=== PATIENT | male | born 1945 | race Caucasian/White ===

== ENCOUNTER → 2024-04-11 10:19 | Outpatient (REF) | payer MEDICARE, OTHER, SELFPAY | LOC: HWRAD 10:19 | PROVIDERS: ATTENDING PHYSICIAN Radiology Diagnostic Radiology; FAMILY PHYSICIAN Family Medicine; REFERRING PHYSICIAN Family Medicine Sports Medicine | DX: Z13.5 Encounter for screening for eye and ear disorders (principal) | CPT/HCPCS: 70030 ==

== ENCOUNTER → 2024-04-20 16:13 | Outpatient (REF) | payer MEDICARE, OTHER, SELFPAY | LOC: PAVMRI 16:13 | PROVIDERS: ATTENDING PHYSICIAN Family Medicine Sports Medicine; FAMILY PHYSICIAN Family Medicine | DX: G89.29 Other chronic pain (principal); M25.552 Pain in left hip; M54.16 Radiculopathy, lumbar region | CPT/HCPCS: 72148; 73721 ==

== ENCOUNTER → 2025-01-06 17:50 | Outpatient (REF) | payer MEDICARE, OTHER, SELFPAY | LOC: MRI 3T 17:50 | PROVIDERS: ATTENDING PHYSICIAN Nurse Practitioner Family; FAMILY PHYSICIAN Family Medicine | DX: M48.062 Spinal stenosis, lumbar region with neurogenic claudication (principal) | CPT/HCPCS: 72158; A9575 ==

== ENCOUNTER → 2025-02-01 14:43 | Outpatient (REF) | payer MEDICARE, OTHER, SELFPAY | LOC: HWRCS 14:43 | PROVIDERS: ATTENDING PHYSICIAN Internal Medicine Cardiovascular Disease; FAMILY PHYSICIAN Family Medicine | DX: R60.0 Localized edema (principal); Z01.818 Encounter for other preprocedural examination; I10 Essential (primary) hypertension | CPT/HCPCS: 93306 ==

== ENCOUNTER 2025-02-22 06:06 | Day surgery (SDC) | payer MEDICARE, OTHER, SELFPAY ==
[2025-01-31 14:09] LABS: Hematocrit 35.7 % (39.0-52.0); Hemoglobin 12.3 g/dL (13.0-18.0); Mean Corp Hgb Conc. 34.5 g/dL (33.0-37.0); Mean Corpuscular Hgb 35.4 pg (27.0-31.0); Mean Corpuscular Volume 102.9 fL (80.0-94.0); Mean Platelet Volume 9.5 fL (7.4-10.4); Platelet Count 184 10^3/uL (130-400); Red Blood Cell Count 3.47 10^6/uL (4.70-6.10); Red Cell Dist. Width 12.8 % (11.5-14.5); White Blood Cell Count 6.2 10^3/uL (4.8-10.8)
[2025-01-31 14:16] VITALS: BMI 32.7
[2025-01-31 14:30] LABS: ALT (SGPT) 27 U/L (0-50); AST (SGOT) 23 U/L (17-59); Albumin 4.4 g/dl (3.5-5.0); Alkaline Phosphatase 55 U/L (38-126); Blood Urea Nitrogen 21 mg/dl (9-20); Calcium 9.8 mg/dl (8.4-10.2); Carbon Dioxide 26 mmol/L (22-30); Chloride 102 mmol/L (98-107); Estimated Creatinine Clearance 63 ml/min; Glucose 141 mg/dl (70-99); Potassium 5.5 mmol/L (3.5-5.1); Sodium 139 mmol/L (135-145); Total Bilirubin 0.7 mg/dl (0.2-1.3); Total Protein 7.1 g/dl (6.3-8.2); eGFR > 60.00
[2025-01-31 14:40] LABS: NT-proBNP 195 pg/ml
[2025-01-31 15:00] LABS: TSH Reflex To Free T4 2.76 uIU/ml (0.47-4.68)
[2025-01-31 15:03] LABS: Glycohemoglobin (HgbA1c) 6.6 % (4.0-5.6)
[2025-01-31 16:47] LABS: Iron 145 ug/dl (49-181)
[2025-01-31 16:56] LABS: Percent Saturation 49 % (20-50); Total Iron Binding Capacity 292 ug/dl (261-462)
[2025-01-31 17:55] LABS: Folate > 20.0 ng/ml (2.76-20); Vitamin B12 833 pg/ml (239-931)
[2025-01-31 18:26] VITALS: BMI 32.7
[2025-02-03 10:59] LABS: Potassium 4.8 mmol/L (3.5-5.1)
[2025-02-03 13:14] VITALS: BMI 32.3
[2025-02-03 15:00] VITALS: BMI 32.3
--- NOTE | 2025-02-13 16:09 | VNURNOTE ---
Patient is scheduled for an elective L THR on 02/22 - he is a same day patient with Dr Preston. Spoke with patient prior to surgery. Introduced role of [facility] Liaison. Patient reports that he lives with his in a MULTI story home.
There is 1 step to enter and a flight of steps to the second floor.
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 He has a raised toilet seat, grabber, glucometer, grab bars, cane and rolling walker.
PCP is Dr Nadeen Teixeira.
Discussed [facility] joint protocol and post surgical plans.
Reviewed that he will have VN services initially and will then start outpatient PT.
Patient selects [facility] for his home care needs and will go to [facility] for outpatient PT. Scheduled for 02/27.
Patient is in agreement with plan and states that his will be home with him. Advised to bring RW with him day of surgery. Referral placed in [facility].
Plan: [facility] per [facility] joint protocol on 02/22 then outpt PT on 02/27
[2025-02-22] VITALS (10 sets, daily range): BP systolic 123–160; BP diastolic 61–85
--- NOTE | 2025-02-22 06:43 | W.DS.TRANS ---
DC Summary - [employer]
-
Discharge Instructions:
Discharge Diagnosis/Procedures L NOE 02/22/25
Diet Diabetic, Carb Controlled
Activity With Walker
Driving Restrictions No driving
Bathing Restrictions OK to Shower
Other Services PT
Instructions:
Stand-Alone Forms: SDS Total Hip and Knee D/C
Changes to Home Medications: Yes
Discharge Medications:
DC Medications w/original date entered in rollApp
Bifidobacterium longum 10 million cell capsule (Align (B.longum)) 10,000,000 cell PO DAILY 01/30/25
alfuzosin 10 mg tablet,extended release 24 hr 10 mg PO HS 01/30/25
amlodipine 10 mg tablet 10 mg PO DAILY 01/30/25
ascorbic acid (vitamin C) 500 mg tablet (Vitamin C) 500 mg PO DAILY 01/30/25
cholecalciferol (vitamin D3) 25 mcg (1,000 unit) chewable tablet (Vitamin D3) 25 mcg PO DAILY 01/30/25
cyanocobalamin (vitamin B-12) 1,000 mcg tablet (Vitamin B-12) 1,000 mcg PO DAILY 01/30/25
duloxetine 40 mg capsule,delayed release 40 mg PO DAILY 01/30/25
glipizide 5 mg tablet 5 mg PO BID 01/30/25
krill 500 mg-omega-3 150 mg-dha 45 mg-epa 75 [id number]-[id number] capsule (krill oil) 1 cap PO DAILY 01/30/25
losartan 50 mg tablet 75 mg PO DAILY 01/30/25
metformin 500 mg tablet 1,000 mg PO DAILY 01/30/25
metformin 500 mg tablet 500 mg PO QPM 01/30/25
metoprolol succinate 50 mg tablet,extended release 24 hr 25 mg PO QPM 01/30/25
metoprolol succinate 50 mg tablet,extended release 24 hr 50 mg PO DAILY 01/30/25
mometasone 50 mcg/actuation nasal spray (Nasonex 24hr Allergy) 2 spray intranasal DAILY PRN Rhinitis, Congestion 01/30/25
multivitamin 1 tab PO DAILY 01/30/25
pantoprazole 40 mg tablet,delayed release 40 mg PO DAILY 01/30/25
simvastatin 10 mg tablet 10 mg PO HS 01/30/25
tadalafil 10 mg tablet 10 - 20 mg PO DAILY PRN ED 01/30/25
tolterodine 4 mg capsule,extended release 24 hr 4 mg PO DAILY@1200 01/30/25
zinc acetate 50 mg (zinc) capsule 50 mg PO DAILY 01/30/25
baclofen 10 mg tablet 10 mg PO BID PRN muscle spasms #15 tabs 01/31/25
cefadroxil 500 mg capsule 500 mg PO DAILY #7 caps 01/31/25
furosemide 20 mg tablet 20 mg PO DAILY 01/31/25
mupirocin 2 % topical ointment 1 applic intranasal BID #1 tube 01/31/25
ondansetron HCl 4 mg tablet 4 mg PO Q6H PRN nausea and vomiting #30 tabs 01/31/25
oxycodone 5 mg tablet 5 - 10 mg (1 - 2 x 5 mg) PO Q6H PRN moderate-severe pain #30 tabs 01/31/25
psyllium 1 packet PO DAILY 01/31/25
acetaminophen 500 mg tablet 1,000 mg (2 x 500 mg) PO QID #0 tabs 02/22/25
apixaban 5 mg tablet (Eliquis) 2.5 mg (1/2 x 5 mg) PO BID Blood clot prevention/tx/afib #60 tabs 02/22/25
docusate sodium 100 mg capsule (Colace) 100 mg PO BID stool softner #1 cap 02/22/25
magnesium hydroxide 400 mg/5 mL oral suspension (Milk of Magnesia) 30 ml PO HS PRN Constipation #1 mL 02/22/25
sennosides 8.6 mg tablet (Senokot) 17.2 mg (2 x 8.6 mg) PO BID laxative #2 tabs 02/22/25
Home Medication Changes
mupirocin 2 % topical ointment 1 applic intranasal BID #1 tube 01/31/25
ondansetron HCl 4 mg tablet 4 mg PO Q6H PRN nausea and vomiting #30 tabs 01/31/25
oxycodone 5 mg tablet 5 - 10 mg (1 - 2 x 5 mg) PO Q6H PRN moderate-severe pain #30 tabs 01/31/25
psyllium 1 packet PO DAILY 01/31/25
acetaminophen 500 mg tablet 1,000 mg (2 x 500 mg) PO QID #0 tabs 02/22/25
apixaban 5 mg tablet (Eliquis) 2.5 mg (1/2 x 5 mg) PO BID Blood clot prevention/tx/afib #60 tabs 02/22/25
docusate sodium 100 mg capsule (Colace) 100 mg PO BID stool softner #1 cap 02/22/25
magnesium hydroxide 400 mg/5 mL oral suspension (Milk of Magnesia) 30 ml PO HS PRN Constipation #1 mL 02/22/25
sennosides 8.6 mg tablet (Senokot) 17.2 mg (2 x 8.6 mg) PO BID laxative #2 tabs 02/22/25
Pending Results: No
[2025-02-22] MEDS: CELEBREX 200 MG PO (06:44)
[2025-02-22] MEDS: TYLENOL 650 MG PO (06:45)
[2025-02-22 06:49] LABS: Glucose - Point of Care 139 mg/dl (70-99)
[2025-02-22] MEDS: NORMOSOL-R/PLASMALYTE-A 1000 IV (06:49)
[2025-02-22 08:27] LABS: Glucose - Point of Care 144 mg/dl (70-99)
[2025-02-22] MEDS: ROXICODONE 5 MG PO (11:14)
[2025-02-22] MEDS: ANCEF 5 IV (11:29)
== END 2025-02-22 12:05 | disposition home or self-care (01) ==
LOC: SDS 06:06
PROVIDERS: ATTENDING PHYSICIAN Orthopaedic Surgery; FAMILY PHYSICIAN Family Medicine; OTHER PHYSICIAN Internal Medicine Cardiovascular Disease; OTHER PHYSICIAN Physician Assistant; REFERRING PHYSICIAN Internal Medicine Cardiovascular Disease
DX: M16.12 Unilateral primary osteoarthritis, left hip (principal); I10 Essential (primary) hypertension; E78.5 Hyperlipidemia, unspecified; I48.0 Paroxysmal atrial fibrillation; Z79.01 Long term (current) use of anticoagulants; R22.43 Localized swelling, mass and lump, lower limb, bilateral; Z87.09 Personal history of other diseases of the respiratory system; G47.33 Obstructive sleep apnea (adult) (pediatric); R06.02 Shortness of breath; N18.9 Chronic kidney disease, unspecified; E11.319 Type 2 diabetes mellitus with unspecified diabetic retinopathy without macular edema; R42 Dizziness and giddiness; D64.9 Anemia, unspecified; E87.5 Hyperkalemia; Z87.891 Personal history of nicotine dependence
CPT/HCPCS: 27130; C1713; C1776; 36415; 73502; 80053; 82607; 82728; 82746; 82962; 83036; 83540; 83550; 83880; 84132; 84443; 85027; 87070; 97162